=== PATIENT | female | born 1955 | race Caucasian/White ===

== ENCOUNTER 2016-10-26 13:44 | Emergency (ER) | payer BC, OTHER ==
[~2016-10-26] VITALS: Ht 165.1 cm; Wt 98.9 kg
[2016-10-26 13:50] VITALS: BP 199/102
[2016-10-26 14:44] LABS: Basophils # (auto) 0 uL; Basophils % (auto) 0.3 % (0.0-2.0); Eosinophils # (auto) 0.2 uL; Eosinophils % (auto) 2.4 % (0.0-7.0); Hematocrit 45.7 % (36.0-46.0); Hemoglobin 15.4 g/dL (12.2-16.2); Lymphocytes # (auto) 2.1 uL; Lymphocytes % (auto) 22.9 % (10.0-50.0); Mean Corpuscular Hemoglobin 31.2 pg (28.0-32.0); Mean Corpuscular Hgb Conc. 33.8 g/dL (32.0-36.0); Mean Corpuscular Volume 92.5 fL (80.0-100.0); Mean Platelet Volume 7.9 fL (7.4-10.4); Monocytes # (auto) 0.5 uL; Neutrophils # (auto) 6.2 uL; Neutrophils % (auto) 68.4 % (37.0-80.0); Platelet Count (auto) 331 10^3/uL (140-450); Red Cell Distribution Width 13.3 % (11.6-16.0)
[2016-10-26 15:04] LABS: Albumin 4.4 g/dL (3.4-5.0); Alkaline Phosphatase 102 U/L (45-117); Anion Gap 10 (5-15); Aspartate Aminotransferase 18 U/L (15-37); BUN/Creatinine Ratio 14.9; Bilirubin, Total 0.3 mg/dL (0.2-1.0); Blood Urea Nitrogen 14 mg/dL (7-18); Calcium 9.1 mg/dL (8.5-10.1); Carbon Dioxide 29 mmol/L (21-32); Chloride 106 mmol/L (98-107); GFR African American 78 mL/min; GFR Non-African American 65 mL/min; Glucose 100 mg/dL (74-106); Magnesium 2.5 mg/dL (1.6-2.6); Sodium 145 mmol/L (136-145); Total Protein 7.8 g/dL (6.4-8.2)
== END 2016-10-26 20:20 | disposition left against medical advice (07) ==
LOC: ER 13:50
DX: R07.89 Other chest pain (principal); Z53.21 Procedure and treatment not carried out due to patient leaving prior to being seen by health care provider
CPT/HCPCS: 36415; 71020; 80053; 83735; 84484; 85025